=== PATIENT | female | born 2000 | race Two or more races ===

== ENCOUNTER 2022-03-14 16:06 | Emergency (ER) | payer MEDICAID, OTHER ==
[~2022-03-14] VITALS: Ht 165.1 cm; Wt 104.5 kg
[2022-03-14 17:50] VITALS: BP 143/89
== END 2022-03-15 00:13 | disposition left against medical advice (07) ==
LOC: ER 16:06
DX: R05.9 Cough, unspecified (principal); R07.81 Pleurodynia; R06.02 Shortness of breath; Z53.21 Procedure and treatment not carried out due to patient leaving prior to being seen by health care provider
CPT/HCPCS: 71046; 81025